=== PATIENT | male | born 1995 | race African-American/Black ===

== ENCOUNTER 2017-04-11 17:57 | Inpatient (IN) | payer OTHER ==
[~2017-04-11] VITALS: Ht 177.8 cm; Wt 109.5 kg
[2017-04-11] MEDS ORDERED: INSULIN REGULAR 150 UNIT in 0.9 % SODIUM CHLORIDE 150ML 150 ML IV PRN ×2 (18:00→18:30)
[2017-04-11 19:17] VITALS: BP 154/75
[2017-04-11 19:54] LABS: ALBUMIN 4.1 g/dL (3.4-5.0); ALBUMIN/GLOBULIN RATIO 1.2 (1.0-1.7); CREATININE 1.4 mg/dL (0.7-1.3); POTASSIUM 4.4 mmol/L (3.5-5.1); TOTAL BILIRUBIN 0.6 mg/dL (0.2-1.0); TOTAL PROTEIN 7.4 g/dL (6.4-8.2)
[2017-04-11 20:20] VITALS: BP 168/84
[2017-04-11 20:23] LABS: PHOSPHORUS 3.7 mg/dL (2.6-4.7)
[2017-04-11 20:54] LABS: BASO % 0 % (0-3); EOS # 0.2 x10^3/uL (0.0-0.7); EOS % 2 % (0-3); HEMATOCRIT 42.4 % (39.0-53.0); HEMOGLOBIN 14.2 g/dL (13.0-17.5); LYMPH # 2.1 x10^3/uL (1.0-4.8); LYMPH % 20 % (24-48); MEAN CORPUSCULAR HEMOGLOBIN 29 pg (25-35); MEAN CORPUSCULAR HGB CONC 33 g/dL (31-37); MEAN CORPUSCULAR VOLUME 86 fL (79-100); MONO # 0.8 x10^3/uL (0.0-1.1); MONO % 8 % (0-9); NEUT # 7.3 x10^3uL (1.8-7.7); NEUT % 70 % (31-73); PLATELET COUNT 235 x10^3/uL (140-400); RED BLOOD COUNT 4.95 x10^6/uL (4.30-5.70); RED CELL DISTRIBUTION WIDTH 13.8 % (11.5-14.5); WHITE BLOOD COUNT 10.5 x10^3/uL (4.0-11.0)
[2017-04-11] MEDS: IV NORMAL SALINE 1,000ML 1,000 ML IV SCH ×2 (20:57→22:49)
[2017-04-11 21:15] VITALS: BP 138/73
[2017-04-11] MEDS ORDERED: INSULIN ASPART 300 UNITS/3 ML INSULN.PEN SQ SCH (21:15)
[2017-04-11] MEDS ORDERED: DEXTROSE 50% 25 GM / 50ML DISP.SYRIN. IV PRN (21:15)
[2017-04-11] MEDS: ENOXAPARIN 40 MG/0.4 ML DISP.SYRIN. SQ SCH (21:29)
[2017-04-11 22:16] LABS: BILIRUBIN,URINE NEG (NEG); CLARITY,URINE CLEAR; COLOR,URINE STRAW; GLUCOSE,URINE >=1000 mg/dL (NEG)
[2017-04-11 22:17] VITALS: BP 129/73
[2017-04-11 22:17] LABS: BACTERIA,URINE 0 /HPF (0-FEW); NITRITE,URINE NEG (NEG); RBC,URINE 0 /HPF (0-2); UROBILINOGEN,URINE 0.2 mg/dL (0.2 mg/dL); WBC,URINE 0 /HPF (0-4)
[2017-04-11 23:18] VITALS: BP 141/70
--- NOTE | 2017-04-11 23:32 | RAD ---
Exam: AP portable chest History: Shortness of air, new onset diabetes. Comparison: None. Findings: The heart and mediastinal structures are within normal limits for size. Lungs are without infiltrate. No pleural effusion or pneumothorax is identified. Impression: 1. No acute cardiopulmonary process. Electronically signed by: Moreno Alfredo MD (04/11/2017 11:29 PM) [facility]
[2017-04-12] VITALS (9 sets, daily range): BP systolic 102–147; BP diastolic 51–80
[2017-04-12] MEDS: IV NORMAL SALINE 1,000ML 1,000 ML IV SCH ×2 (01:06→05:21)
[2017-04-12 01:46] LABS: ALBUMIN 3.6 g/dL (3.4-5.0); ALBUMIN/GLOBULIN RATIO 1.2 (1.0-1.7); CALCIUM 8.3 mg/dL (8.5-10.1); GFR 116.5; POTASSIUM 3.6 mmol/L (3.5-5.1); TOTAL BILIRUBIN 0.7 mg/dL (0.2-1.0); TOTAL PROTEIN 6.5 g/dL (6.4-8.2)
[2017-04-12] MEDS ORDERED: POTASSIUM CHLORIDE 20 MEQ TABLET.ER. PO ONE (02:30)
[2017-04-12 06:20] LABS: BASO % 1 % (0-3); EOS # 0.3 x10^3/uL (0.0-0.7); EOS % 4 % (0-3); HEMOGLOBIN 13.5 g/dL (13.0-17.5); LYMPH # 3.3 x10^3/uL (1.0-4.8); LYMPH % 41 % (24-48); MEAN CORPUSCULAR HEMOGLOBIN 29 pg (25-35); MEAN CORPUSCULAR HGB CONC 34 g/dL (31-37); MEAN CORPUSCULAR VOLUME 84 fL (79-100); MONO # 0.7 x10^3/uL (0.0-1.1); MONO % 8 % (0-9); NEUT # 3.7 x10^3uL (1.8-7.7); NEUT % 46 % (31-73); PLATELET COUNT 208 x10^3/uL (140-400); RED BLOOD COUNT 4.75 x10^6/uL (4.30-5.70); RED CELL DISTRIBUTION WIDTH 13.9 % (11.5-14.5); WHITE BLOOD COUNT 8.1 x10^3/uL (4.0-11.0)
[2017-04-12 06:47] LABS: ALBUMIN 3.5 g/dL (3.4-5.0); ALBUMIN/GLOBULIN RATIO 1.3 (1.0-1.7); CALCIUM 8.4 mg/dL (8.5-10.1); GFR 116.5; POTASSIUM 3.8 mmol/L (3.5-5.1); TOTAL BILIRUBIN 0.8 mg/dL (0.2-1.0); TOTAL PROTEIN 6.3 g/dL (6.4-8.2)
--- NOTE | 2017-04-12 07:02 | EKG ---
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
[2017-04-12 07:43] LABS: % BASOS 1 % (0-3); % EOS 6 % (0-5); % LYMPHS 43 % (24-48); % MONOS 6 % (0-10); % SEGS 44 % (35-66); PLT ESTIMATE ADEQUATE (ADEQUATE); TOXIC GRANULATION SLIGHT
[2017-04-12] MEDS ORDERED: DEXTROSE 50% 25 GM / 50ML DISP.SYRIN. IV PRN (08:00)
[2017-04-12] MEDS: INSULIN ASPART 300 UNITS/3 ML INSULN.PEN SQ SCH ×5 (08:21→19:58)
[2017-04-12] MEDS: INSULIN DETEMIR 300 UNITS/3 ML INSULN.PEN. SQ SCH ×2 (10:21→21:58)
[2017-04-12] MEDS: ENOXAPARIN 40 MG/0.4 ML DISP.SYRIN. SQ SCH (21:52)
[2017-04-13 00:01] VITALS: BP 140/71
[2017-04-13 04:09] LABS: HEMOGLOBIN A1C 10.9 % (4.8-5.6)
[2017-04-13 05:16] VITALS: BP 135/65
[2017-04-13 06:29] LABS: HEMATOCRIT 41.3 % (39.0-53.0); HEMOGLOBIN 13.9 g/dL (13.0-17.5); RED BLOOD COUNT 4.91 x10^6/uL (4.30-5.70); RED CELL DISTRIBUTION WIDTH 13.7 % (11.5-14.5); WHITE BLOOD COUNT 8.7 x10^3/uL (4.0-11.0)
[2017-04-13 06:43] LABS: CALCIUM 8.9 mg/dL (8.5-10.1); CREATININE 0.9 mg/dL (0.7-1.3); GFR 131.5; POTASSIUM 3.8 mmol/L (3.5-5.1)
--- NOTE | 2017-04-13 06:46 | PN ---
DATE: 04/12/2017 SUBJECTIVE: A 21-year-old male, new onset of type 1 diabetes. The patient is resting fairly comfortably, he has made good progress, sugars are down 198 with some insulin and IV fluids. He was extremely dehydrated when he came in with sugar of greater than 660, blood pressure also came down somewhat. He had a blood pressure initially of 168/84 with a pulse in the 70s. He was afebrile low at 97.5. In any case, the patient is feeling much better this morning, better hydrated. The patient's labs also show improvement and his clearance creatinine went from 1.4 and GFR of 79 to creatinine of 1 and GFR of 116, sugar 182, calcium slightly low, otherwise resting fairly comfortably. Other labs are still pending and otherwise we will continue to get diabetic information as well as diabetic teaching as well as giving self insulin as well as medication administration. IMPRESSION: New onset type 1 diabetes, severe hyperglycemia, severe dehydration, hypokalemia, acute renal failure from dehydration. I had a discussion with the patient and his mother about situation. PLAN: The patient apparently had been having muscle cramps for sometime and been drinking mustard for his muscle cramps. CHUY BARFIELD MD DR: SHASHANK/alexi JOB#: [id number] / [id number]
[2017-04-13] MEDS ORDERED: INSULIN ASPART 300 UNITS/3 ML INSULN.PEN SQ SCH (08:00)
[2017-04-13] MEDS: INSULIN DETEMIR 300 UNITS/3 ML INSULN.PEN. SQ SCH (08:02)
[2017-04-13] MEDS ORDERED: FLU VACC QS2017-18 (36MOS+)/PF 0.5 ML SYRINGE. VAX IM ONE (09:00)
[2017-04-13] MEDS ORDERED: INSU100I17 SQ (10:30)
[2017-04-13] MEDS ORDERED: INSU100I27 SQ (10:30)
--- NOTE | 2017-04-13 19:12 | DS ---
DATE OF DISCHARGE: 04/13/2017 HOSPITAL COURSE: A 21-year-old male with new onset of diabetes, noticed increased urination, increased thirst. The patient was also losing some weight, came into the office, sugars were over 600, admitted for new onset of type-1 diabetes out of control, hyperglycemia. The patient made good progress given copious amounts of fluid per protocol as well as looking at getting the sugars down, diabetic education, teaching and so far chest x-ray was unremarkable. His basic labs were also unremarkable. A1c was 10, hemoglobin, hematocrit remained basically stable. Sugars were brought down from 600s to the lower 200s, but he was not very active obviously while here in the hospital and creatinine came down from 1.4 to 1. 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 In any case, the patient made excellent progress overall and will be discharged home. IMPRESSION: New onset of type 1 diabetes, poorly controlled, acute renal failure secondary to dehydration. CHUY BARFIELD MD DR: SHASHANK/alexi JOB#: [id number] / [id number]
== END 2017-04-13 11:12 | disposition home or self-care (01) | DRG 638 ==
LOC: UNDOADMIN 17:57 → ICU 17:57
PROVIDERS: ADMIT Family Medicine; ATTEND Family Medicine
DX: E10.65 Type 1 diabetes mellitus with hyperglycemia (principal); N17.9 Acute kidney failure, unspecified; E86.0 Dehydration; E87.6 Hypokalemia
CPT/HCPCS: 36415; 71010; 80048; 80053; 81001; 82010; 82550; 82947; 83036; 83690; 83735; 83930; 84100; 84443; 84484; 84681; 85007; 85025; 85027; 87641; 90686; 93005; J1650; J1815; J7030

== ENCOUNTER 2020-11-16 20:12 | Emergency (ER) | payer OTHER ==
[~2020-11-16] VITALS: Ht 182.9 cm; Wt 113.6 kg
[~2020-11-16 20:12] MED LIST: INSU100I17 SQ; INSU100I27 SQ
--- NOTE | 2020-11-16 20:38 | PHYS DOC ---
Past History Past Medical History: No Pertinent History Past Surgical History: No Surgical History Alcohol Use: Occasionally Adult General Chief Complaint Chief Complaint: LOWER EXT PAIN HPI HPI Patient is an otherwise healthy 25-year-old male who presents with right ankle pain, 6 out of 10, sharp in nature after twisting it while playing basketball just before coming to the emergency department. States he has some crutches at home and started using because it hurts to walk. Denies any other injuries. Review of Systems Review of Systems Review of systems otherwise unremarkable except noted in HPI Current Medications Current Medications Current Medications Medications (Trade) Dose Ordered Sig/Matt Start Time Stop Time Status Last Admin Dose Admin Oxycodone/ Acetaminophen (Percocet 5/325) 2 tab 1X ONCE 11/16/20 20:45 11/16/20 20:46 UNV Allergies Allergies Allergies Coded Allergies Type Severity Reaction Last Updated Verified No Known Drug Allergies 04/11/17 No Physical Exam Physical Exam Constitutional: Well developed, well nourished, no acute distress, non-toxic appearance. [] Skin: Warm, dry, no erythema, no rash. [] Back: No tenderness, no CVA tenderness. [] Extremities: Swelling and tenderness around the right lower extremity at and around right lateral malleolus. Neurovascular exam intact. Neurologic: Alert and oriented X 3, no focal deficits noted. [] Psychologic: Affect normal, judgement normal, mood normal. [] Current Patient Data Vital Signs Vital Signs Date Time Temp Pulse Resp B/P (MAP) Pulse Ox O2 Delivery O2 Flow Rate FiO2 11/16/20 20:18 97.1 104 18 150/84 (106) 99 Room Air EKG EKG [] Radiology/Procedures Radiology/Procedures [] Right ankle x-rays 3 views HISTORY: Right ankle injury playing basketball, pain and swelling. FINDINGS: Soft tissue swelling lateral ankle. There is a faint linear calcification inferior of the medial malleolus on the oblique view this could be a tiny cortical avulsion perhaps of the joint capsule or of the deltoid ligament. No fracture of the tibial plafond, or lateral malleolus. No talus osteochondral lesion. No dislocation. Mild bone spurring of anterior tibial plafond. IMPRESSION: Tiny linear calcification below the medial malleolus could be a small cortical avulsion fracture as described above. Lateral ankle soft tissue swelling. Electronically signed by: Emeka Rick MD (11/16/2020 9:06 PM) [facility] Heart Score C/O Chest Pain: No Risk Factors: Risk Factors: DM, Current or recent (<one month) smoker, HTN, HLP, family history of CAD, obesity. Risk Scores: Risk Factors: DM, Current or recent (<one month) smoker, HTN, HLP, family history of CAD, obesity. Course & Med Decision Making Course & Med Decision Making Patient is a 25-year-old male who presents with right ankle pain after twisting it in a basketball game Vital signs not concerning. Physical exam noted above. Given Percocet, ibuprofen and ice. Imaging noted above with tiny linear calcification below the medial malleolus which could be a small cortical avulsion, otherwise unremarkable. Patient placed in an Alan wrap. Advised to walk on crutches until asymptomatic and cleared by his primary care physician. Given pain recommendations for home. Advised to call primary care in the morning to update on his ED visit. Gave return precautions to the ED. Patient grateful, verbalized understanding and agreed with plan of discharge. Dragon Disclaimer Dragon Disclaimer This electronic medical record was generated, in whole or in part, using a voice recognition dictation system. Departure Departure: Impression: Primary Impression: Avulsion fracture Disposition: HOME / SELF CARE / HOMELESS Condition: GOOD Referrals: CHUY BARFIELD MD (PCP) Patient Instructions: Ankle Sprain, Avulsion Fracture Additional Instructions: Please read all of the attached information very carefully. Please keep your Alan wrap on and use your crutches whenever walking as discussed. You can use Tylenol, ibuprofen and ice as needed at home for pain control. Please call your primary care physician in the morning to update on your ED visit and set up a follow-up in the next week for reevaluation. Please come back to the emergency department with new or concerning symptoms as discussed. REJI SCOTT MD November 16, 2020 20:38
[2020-11-16] MEDS ORDERED: IBUPROFEN 600 MG TABLET. PO ONE (20:45)
[2020-11-16] MEDS ORDERED: oxyCODONE/APAP 5/325 1 TAB TABLET PO ONE (20:45)
--- NOTE | 2020-11-16 21:08 | RAD ---
Right ankle x-rays 3 views HISTORY: Right ankle injury playing basketball, pain and swelling. FINDINGS: Soft tissue swelling lateral ankle. There is a faint linear calcification inferior of the m edial malleolus on the oblique view this could be a tiny cortical avulsion perhaps of the joint capsu le or of the deltoid ligament. No fracture of the tibial plafond, or lateral malleolus. No talus oste ochondral lesion. No dislocation. Mild bone spurring of anterior tibial plafond. IMPRESSION: Tiny linear calcification below the medial malleolus could be a small cortical avulsion f racture as described above. Lateral ankle soft tissue swelling. Electronically signed by: Emeka Rick MD (11/16/2020 9:06 PM) [facility]
[2020-11-16 21:40] VITALS: BP 140/80
== END 2020-11-16 21:42 | disposition home or self-care (01) ==
LOC: ER 20:12
DX: S82.51XA Displaced fracture of medial malleolus of right tibia, initial encounter for closed fracture (principal); X50.1XXA Overexertion from prolonged static or awkward postures, initial encounter; Y93.67 Activity, basketball; Y92.89 Other specified places as the place of occurrence of the external cause; Y99.8 Other external cause status
CPT/HCPCS: 73610; 99283-25